=== PATIENT | male | born 1985 ===

== ENCOUNTER 2021-01-25 05:43 | Emergency (ER) | payer SELFPAY ==
[~2021-01-25] VITALS: Ht 182.9 cm; Wt 66.5 kg
[2021-01-25 05:50] VITALS: BP 153/85
--- NOTE | 2021-01-25 07:22 | NUR ---
1ST CALL NOT IN LOBBY
--- NOTE | 2021-01-25 07:25 | NUR ---
NA X1
--- NOTE | 2021-01-25 07:32 | NUR ---
2ND CALL NOT IN LOBBY
--- NOTE | 2021-01-25 07:37 | NUR ---
3RD CALL NOT IN LOBBY
== END 2021-01-25 07:40 | disposition left against medical advice (07) ==
LOC: ED 07:00
DX: R56.9 Unspecified convulsions (principal); Z53.21 Procedure and treatment not carried out due to patient leaving prior to being seen by health care provider
CPT/HCPCS: 93005